=== PATIENT | male | born 1995 | race Caucasian/White ===

== ENCOUNTER 2018-08-01 16:35 | Emergency (ER) | payer SELFPAY ==
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
[2018-08-01] MEDS ORDERED: HYDROCODONE/APAP 5/325 TAB ONE (16:48)
[2018-08-01] MEDS ORDERED: HYDROCODONE/APAP 5/325 TAB PO ONE (16:49)
[2018-08-01 17:51] VITALS: BP 143/98
== END 2018-08-01 17:50 | disposition home or self-care (01) ==
DX: S70.12XA Contusion of left thigh, initial encounter (principal); W50.1XXA Accidental kick by another person, initial encounter; Y93.75 Activity, martial arts; F17.200 Nicotine dependence, unspecified, uncomplicated